=== PATIENT | female | born 1955 | race American Indian/Alaskan Native ===

== ENCOUNTER 2018-11-24 11:12 | Day surgery (SDC) | payer BC ==
[~2018-11-24 11:12] MED LIST: AMIDATE IV ONE; DIPRIVAN 10 MG/ML IV ONE; XYLOCAINE 2% INFILTRATI ONE
[2018-11-24] MEDS ORDERED: NACL 0.9% 1000 ML 1,000 ML IV SCH (12:00)
[2018-11-24] MEDS ORDERED: VERSED ONE (12:24)
[2018-11-24] MEDS ORDERED: DIPRIVAN 10 MG/ML IV ONE ×2 (12:24)
--- NOTE | 2018-11-24 12:53 | Anesthesia Consultation ---
Anesthesia Consult and Med Hx Date of service: 11/24/18 - Airway Anesthetic Teeth Evaluation: Good ROM Head & Neck: Adequate Mental/Hyoid Distance: Adequate Intubation Access Assessment: Probably Good - Pulmonary Exam CTA: Yes - Cardiac Exam Cardiac Exam: RRR - Pre-Operative Health Status ASA Pre-Surgery Classification: ASA2 Proposed Anesthetic Plan: MAC - Cardiovascular System Hx Hypertension: Yes - Other Systems Hx Obesity: Yes
--- NOTE | 2018-11-24 12:53 | Anesthesia Day of Surgery ---
Anesthesia Day of Surgery - Day of Surgery Patient Examined: Yes Patient H&P Reviewed: Yes Patient is NPO: Yes
--- NOTE | 2018-11-24 13:02 | Procedure Note ---
Date of procedure: 11/22/18 Pre-op diagnosis: Colon Polyp Screening/ F/H/O Cancer 9mother) Post-op diagnosis: other (Two Transverse Colon Polyps/ Moderate, Left Colon Diverticular Disease/ Minor,Internal Hemorrhoid) Procedure: Colonoscopy with Snare Polypectomy (Hot) and Cold Biopsy Anesthesia: MAC Surgeon: PALMER SIDDIQUI Estimated blood loss: minimal Pathology: list Specimen disposition: to lab Condition: stable Disposition: same day (Avoid aspirin and NSAID for 5 days. Encourage fiber intake. Resume home medication,escept for aspirin and NSAID for 5 days. Follow up in 1 to 2 weeks ([phone]).)
--- NOTE | 2018-11-24 13:21 | Operative Report ---
INDICATIONS: This is a 63-year-old -[place] female with an underlying history of hypertension and who had a colonoscopy done 13 years ago. She does have a family history of cancer. The patient's mother had ovarian cancer when she was in her 60s. Colonoscopy was done to make sure there was not any colon polyp as part of colon polyp screening. DESCRIPTION OF PROCEDURE: Procedure was done after getting informed consent with MAC anesthesia. Initial rectal exam was unremarkable. Instrument was passed through the rectum onto the cecum, which was identified with ileocecal valve and the appendiceal orifice. The terminal ileum was intubated showed normal mucosa. The cecum, ascending colon showed normal mucosa. There was a 12 mm polyp on a stalk that was removed by snare excision and retrieved and a smaller 10 mm polyp that was initially biopsied with using a cold biopsy then removed by snare excision and retrieved. The remaining part of the transverse colon showed normal mucosa. Moderate diverticular disease was noted in the left colon and the rectum showed minor internal hemorrhoids in the retroverted view. There was minimal bleeding from the polypectomy site and no complications associated with the procedure. ASSESSMENT: Colon polyp screening, family history of cancer. The patient's mother had ovarian cancer, transverse colon polyp x 2, moderate left colon diverticular disease, minor internal hemorrhoids. Again, there was minimal bleeding from the biopsy sites. No complications associated with the procedure. The patient will be asked to avoid aspirin and aspirin-related products for the next few days and follow up in the office in about 1-2 weeks' time. The patient will also be encouraged to take fiber supplements because of the presence of diverticulosis disease. Lynn ANTONY was in the room for the entirety of the procedure. JOB# [id number] SINA/GAURANG
[2018-11-24 14:02] VITALS: BP 116/78
== END 2018-11-24 11:13 | disposition home or self-care (01) ==
LOC: GIO 11:12
DX: Z12.11 Encounter for screening for malignant neoplasm of colon (principal); K63.5 Polyp of colon; K57.30 Diverticulosis of large intestine without perforation or abscess without bleeding; I10 Essential (primary) hypertension; E66.9 Obesity, unspecified; Z68.39 Body mass index [BMI] 39.0-39.9, adult; Z87.891 Personal history of nicotine dependence; Z98.890 Other specified postprocedural states; K64.8 Other hemorrhoids
CPT/HCPCS: 45380; 45385; 88305; J2250; J2704; J7030